=== PATIENT | male | born 1995 | race Caucasian/White ===

== ENCOUNTER 2020-10-17 17:17 | Emergency (ER) | payer SELFPAY ==
[2020-10-17 17:29] VITALS: BP 120/73; PULSE 95; RESP 16; TEMP 36.3; O2SAT 97; BMI 22.8
--- NOTE | 2020-10-17 17:34 | W.ED.EXTPRO ---
HPI - Extremity Problem General: Chief complaint: Extremity Injury, Upper Stated complaint: LUE/RUE INJURIES Time Seen by Provider: 10/17/20 17:34 History of Present Illness: HPI Narrative: 24-year-old male patient comes in with injury to the right thumb and the left palm of the hand. 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 Patient reports yesterday he thinks he got something stuck in the palm of his left hand, today he has noticed increased redness and tenderness to the left hand. Patient also yesterday had smashed the right thumb and has noticed some increasing redness and swelling of the distal palm. Bilateral hands are stained with oak sap. Distal cap refill is intact. Review of Systems General: Reports: 10 or more systems reviewed and unremarkable except in HPI and below Musc: Reports: other (Injury right thumb, foreign body left hand.) Physical Exam Const: COMMON NORMALS: no acute distress and patient oriented x3 GENERAL APPEARANCE: cooperative HENMT: COMMON NORMALS: normocephalic and Normal external nose present HEAD & SCALP: normal to inspection and normocephalic NOSE: Normal external nose present Eye: GENERAL EYE: appearance normal, both eyes and all related structures Neck/C-Spine: COMMON NORMALS: full ROM Chest: COMMONS NORMALS: normal inspection of the chest Resp: COMMON NORMALS: normal respiratory effort EFFORT & INSPECTION: Yes able to speak in complete sentences Cardio: COMMON NORMALS: regular rate and regular rhythm RATE: regular rate RHYTHM: regular rhythm GI: COMMON NORMALS: non-tender Extremity: NARRATIVE EXTREMITY EXAM: Abrasion noted to the right distal thumb with some area redness and mild swelling. Patient has good range of motion of the thumb. Neuro: COMMON NORMALS: patient oriented x3 and moves all extremities Psych: COMMON NORMALS: mental status grossly normal and cooperative Skin: NARRATIVE SKIN EXAM: Puncture wound noted to the thenar area of the left palmar hand with area of redness, and tenderness to touch. Procedures Abscess I/D Site: hand Side (if applicable): left Local Anesthetic: lidocaine 1% and with epi Amount of anesthesia used (mL): 3 Technique: incised with #11 blade Amount of fluid expressed (mL): 1 Irrigation: Yes Packing used?: none Course Vital Signs: Vital signs: Vital Signs Temperature 97.3 F L 10/17/20 17:29 Pulse Rate 95 06/17/21 17:29 Respiratory Rate 16 10/17/20 17:29 Blood Pressure 120/73 10/17/20 17:29 Pulse Oximetry 97 10/17/20 17:29 MDM - Extremity (Nontraumatic) MDM Narrative: Medical decision making narrative: Patient came in for concern of an injury to his right thumb, and a foreign body to his left palmar hand. Patient reports yesterday he had his thumb slammed against another board while working at [employer]. Patient also has a injury to his left palmar hand where he had a splinter. Patient reports increased redness and swelling to the left hand. Differential diagnosis includes fracture contusion, foreign body, abscess, cellulitis. X-ray of the hands noted no fracture or foreign bodies. Wound was opened and some purulent drainage was noted. No foreign body was noted in the wound. Wound was irrigated with saline until clear. Patient tolerated well under local anesthetic. Patient will be started on Augmentin 875 twice daily for the next 7 days, and mupirocin ointment. Patient's tetanus was updated. Patient was recommended to monitor for worsening symptoms and encouraged to keep the wound as clean as possible. Patient reported understanding agreed to plan. Discharge Plan Discharge Patient Disposition: Home Clinical Impression: Foreign body (FB) in soft tissue Contusion of finger of right hand Qualifiers: Encounter type: initial encounter Finger: thumb Damage to nail status: without damage Qualified Code(s): S60.011A - Contusion of right thumb without damage to nail, initial encounter Condition: Stable Prescriptions: New Augmentin 875-125 mg tablet 1 tab PO BID Qty: 14 RF: 0 No Action Tylenol 325 mg Tablet 325 - 650 mg PO Q6H PRN (Reason: Pain) RF: 0 Discharge Orders: Discharge ED (Routine); Ordered 10/17/20 Ordered By: Jeb Gilmore Discharge Diet: Usual diet Discharge Activity: Increase activity as tolerated Patient Instructions: Opioid Safety, Wound Care (General) Activity Restrictions/Additional Instructions: Keep wound clean and dry. Avoid contamination with dirt or and sawdust. Activity as tolerated. Take antibiotics twice a day for next 7 days. Clean wound twice a day with soap and water and apply antibiotic ointment. Use acetaminophen or ibuprofen for pain. Monitor for worsening symptoms. Return to the ER for new concerns. Stand Alone Forms: Work/School Release Coding Level of Care Code ED Corporate Safety Coordinator for Chg Fwd Exam Comprehensive
--- NOTE | 2020-10-17 17:39 | XRR_ITS ---
PROCEDURE INFORMATION: Exam: XR Right Hand Exam date and time: 10/17/2020 5:39 PM Age: 24 years old Clinical indication: Injury or trauma; Work related; Blunt trauma (contusions or hematomas); Hand; Injury date: 10/16/2020; Injury details: Works at [employer], piece of wood hit right thumb; Additional info: Thumb injury TECHNIQUE: Imaging protocol: XR Right hand. Views: 3 or more views. COMPARISON: No relevant prior studies available. FINDINGS: Bones/joints: Normal. Soft tissues: Normal. XR/XR hand RT min 3V* [id number] IMPRESSION: No acute findings.
--- NOTE | 2020-10-17 17:39 | XRR_ITS ---
PROCEDURE INFORMATION: Exam: XR Left Hand Exam date and time: 10/17/2020 5:39 PM Age: 24 years old Clinical indication: Hand; Patient HX: Swelling/pain left second digit; Additional info: Foreign palm thenar area TECHNIQUE: Imaging protocol: XR Left hand. Views: 3 or more views. COMPARISON: No relevant prior studies available. FINDINGS: Bones/joints: Normal. Soft tissues: Normal. XR/XR hand LT min 3V* [id number] IMPRESSION: No acute findings.
[2020-10-17] MEDS: amoxicillin-clav 875-125 mg Tablet 1 TAB PO (17:56)
[2020-10-17] MEDS: tetanus-dipt-pertussis 0.5 mL SDV IM (18:48)
[2020-10-17] MEDS: mupirocin oint 22 gm 1 APPLIC TOPICAL (18:51)
[2020-10-17 18:55] VITALS: BP 125/59; PULSE 63; RESP 16; O2SAT 99
== END 2020-10-17 19:01 | disposition home or self-care (01) ==
PROVIDERS: Emergency Provider Nurse Practitioner Family
DX: S60.011A Contusion of right thumb without damage to nail, initial encounter (principal); M79.5 Residual foreign body in soft tissue; L02.512 Cutaneous abscess of left hand; W23.0XXA Caught, crushed, jammed, or pinched between moving objects, initial encounter; Z23 Encounter for immunization
CPT/HCPCS: 10060; 73130; 90471; 90715; 99283